=== PATIENT | female | born 1980 | race Caucasian/White ===

== ENCOUNTER 2016-08-24 21:44 | Emergency (ER) | payer SELFPAY ==
[~2016-08-24 21:44] MED LIST: AT25 PO; ATV1 PO; MOBIC15 MG PO; ORPHENADRINE100 MG PO; VENTOLIN HFA INH; VIIBRYD PO
== END 2016-08-25 00:38 | disposition home or self-care (01) ==
LOC: ER 21:44
DX: L08.9 Local infection of the skin and subcutaneous tissue, unspecified (principal); L25.9 Unspecified contact dermatitis, unspecified cause; J45.909 Unspecified asthma, uncomplicated; F17.200 Nicotine dependence, unspecified, uncomplicated; Z86.19 Personal history of other infectious and parasitic diseases; Z91.040 Latex allergy status; Z79.899 Other long term (current) drug therapy
CPT/HCPCS: 96372; 99282; A9270-GY